=== PATIENT | male | born 1995 | race African-American/Black ===

== ENCOUNTER 2017-04-06 21:51 | Emergency (ER) | payer SELFPAY ==
[~2017-04-06] VITALS: Ht 182.9 cm; Wt 90.9 kg
[2017-04-06] MEDS ORDERED: LORazepam 2 MG/ML VIAL IVP ONE (22:15)
[2017-04-06] MEDS ORDERED: ONDANSETRON HCL 4 MG/2 ML VIAL IVP ONE (22:15)
[2017-04-06] MEDS ORDERED: SODIUM CHLORIDE 0.9% 1,000 ML IV ONE (22:15)
[2017-04-06] MEDS ORDERED: CeFAZolin 2 GM/DEXTROSE 50 ML IV ONE (22:15)
[2017-04-06] MEDS ORDERED: PERTUSS(ACELL),DIPH,TET VAC/PF 0.5 ML VIAL IM ONE (22:15)
[2017-04-06] MEDS ORDERED: MORPHINE SULFATE 4 MG/ML SYRINGE IVP ONE (22:15)
[2017-04-06 23:00] VITALS: BP 131/89
== END 2017-04-06 23:32 | disposition home or self-care (01) ==
LOC: EMS 21:53
DX: S41.102A Unspecified open wound of left upper arm, initial encounter (principal); W34.00XA Accidental discharge from unspecified firearms or gun, initial encounter; Y93.89 Activity, other specified; Y92.9 Unspecified place or not applicable; Y99.9 Unspecified external cause status
CPT/HCPCS: 71010; 73060; 90471; 90715; 96365; 96375; 99285; J0690; J2270; J2405

== ENCOUNTER 2019-09-11 05:08 | Emergency (ER) | payer SELFPAY ==
[~2019-09-11] VITALS: Ht 185.4 cm; Wt 90.9 kg
[2019-09-11 09:10] VITALS: BP 127/91
[2019-09-11] MEDS ORDERED: CefTRIAXone SODIUM 1 GM/VIAL IM ONE (09:30)
[2019-09-11] MEDS ORDERED: AZITHROMYCIN 250 MG TABLET PO ONE (09:30)
== END 2019-09-11 09:45 | disposition home or self-care (01) ==
LOC: EMS 05:11
DX: Z11.3 Encounter for screening for infections with a predominantly sexual mode of transmission (principal)
CPT/HCPCS: 87491; 87591; 96372; 99283; J0696

== ENCOUNTER 2020-01-21 14:01 | Emergency (ER) | payer SELFPAY ==
[~2020-01-21] VITALS: Ht 185.4 cm; Wt 100.0 kg
[2020-01-21 14:04] VITALS: BP 123/67
[2020-01-21] MEDS ORDERED: AZITHROMYCIN 250 MG TABLET PO ONE (15:00)
[2020-01-21] MEDS ORDERED: CefTRIAXone SODIUM 1 GM/VIAL IM ONE (15:00)
== END 2020-01-21 15:32 | disposition home or self-care (01) ==
LOC: EMS 14:03
DX: A64 Unspecified sexually transmitted disease (principal)
CPT/HCPCS: 96372; 99283; J0696